=== PATIENT | male | born 1995 | race Caucasian/White ===

== ENCOUNTER → 2019-10-04 13:39 | Outpatient (CLI) | payer OTHER, SELFPAY ==
[2019-10-04 13:45] LABS: Basophils % 0.9 % (0.1-2.0); Eosinophils # 0.1 K/mm3 (0.0-0.4); Eosinophils % 2.6 % (0.1-12.0); Hematocrit 51.9 % (42.0-52.0); Hemoglobin 17.5 g/dL (14.1-18.0); Lymphocytes # 1.5 K/mm3 (0.7-4.5); Lymphocytes % 32.1 % (10-50); Mean Corpuscular HGB Conc 33.7 g/dL (31.8-35.4); Mean Corpuscular Hemoglobin 31.2 pg (27.0-31.2); Mean Corpuscular Volume 92.6 fl (80-94); Mean Platelet Volume 8.2 fl (7.4-10.4); Monocytes # 0.4 K/mm3 (0.1-1.0); Monocytes % 8.2 % (1.7-9.3); Neutrophils # 2.5 K/mm3 (1.8-7.8); Neutrophils % 56.1 % (37.0-80.0); Platelet Count 255 K/mm3 (142-424); Red Cell Distribution Width 13.3 % (11.5-17.5); White Blood Count 4.5 K/mm3 (4.8-10.8)
[2019-10-04 14:12] LABS: Alanine Aminotransferase 62 U/L (12-78); Albumin Level 3.9 gm/dL (3.4-5.0); Albumin/Globulin Ratio 1.2 (1.1-1.8); Alkaline Phosphatase 101 U/L (46-116); Anion Gap 13.6 mEq/L (5-15); Aspartate Amino Transferase 29 U/L (15-37); Bilirubin,Total 0.6 mg/dL (0.2-1.0); Blood Urea Nitrogen 6 mg/dL (7-18); Calcium 9.2 mg/dL (8.5-10.1); Carbon Dioxide 29 mmol/L (21.0-32.0); Chloride 105 mmol/L (98-107); Creatinine,Serum 0.81 mg/dL (0.70-1.30); Estimated Glomerular Filt Rate 116 ml/min (>60); Free T4 (Free Thyroxine) 0.92 ng/dl (0.76-1.46); GFR (African American) 140 ML/MIN (>60); Globulin 3.3 gm/dl (1.3-3.2); Potassium 4.6 mmoL/L (3.5-5.1); Sodium 143 mmol/L (136-145); Thyroid Stimulating Hormone 1.46 uIU/ml (0.358-3.740); Total Protein,Serum 7.2 gm/dL (6.4-8.2); Triglycerides 166 mg/dL (30-200); VLDL Cholesterol 33 mg/dL (0-40)
[2019-10-04 14:29] LABS: Chol/HDL Ratio 5.6 (1-3.5); Cholesterol 240 mg/dL (140-200); Glucose 97 mg/dL (74-106); HDL Cholesterol 43 mg/dL (27-67); LDL Cholesterol 164 mg/dL (0-130)
[2019-10-05 09:43] LABS: Hep A Ab, IgM Negative (Negative); Hep A Ab, Total Negative (Negative); Hep B Core Ab, Total Negative (Negative)
[2019-10-05 12:34] LABS: Hep B Surface Ab, Qual Non Reactive (.); Hepatitis B Surface Antigen Negative (Negative); Hepatitis C Antibody 0.1 s/co ratio (0.0-0.9)
== END ==
PROVIDERS: Visit Provider Emergency Medicine
DX: R07.89 Other chest pain (principal); R53.83 Other fatigue; R93.89 Abnormal findings on diagnostic imaging of other specified body structures
CPT/HCPCS: 80053; 80061; 84439; 84443; 85025; 86704; 86706; 86708; 87340; 87380

== ENCOUNTER → 2019-10-18 09:36 | Outpatient (CLI) | payer OTHER, SELFPAY ==
--- NOTE | 2019-10-18 09:41 | US_ITS ---
PROCEDURE: US EXTREMITY RT LIMITED CLINICAL INDICATION: right leg mass BB size nodule medial upper leg COMPARISON: No exams were available for comparison FINDINGS: There is a small subcutaneous area of increased echogenicity corresponding to the palpable abnormality in the medial aspect of the knee on the right measuring 1 cm. Centrally there is increased echogenicity with a small zone of decreased echogenicity. Around the periphery there is increased echogenicity. This forms a target sign. This could represent a lymph node, a sebaceous cyst, or an atypical lipoma. Please correlate with clinical findings. IMPRESSION: Complex hyperechoic nodule in the subcutaneous region corresponding to the palpable abnormality measuring approximately 1 cm and could be due to a complex lipoma sebaceous cyst or even a lymph node. Recommend follow-up to confirm stability. Dictated by: Guy Roger MD 10/18/2019 16:28 Electronically signed by Guy Roger MD in [place] 10/18/2019 16:28
--- NOTE | 2019-10-18 10:15 | XR_ITS ---
PROCEDURE: XR TIBIA FIBULA RT 2V CLINICAL INDICATION: leg mass COMPARISON: US EXTREMITY RT LIMITED from 10/18/2019 FINDINGS: No bony or joint abnormality. No soft tissue calcification or obvious mass. IMPRESSION: Negative right tib fib Dictated by: Guy Roger MD 10/18/2019 15:45 Electronically signed by Guy Roger MD in [place] 10/18/2019 15:45
== END ==
PROVIDERS: PCP Emergency Medicine; Visit Provider Emergency Medicine
DX: R22.41 Localized swelling, mass and lump, right lower limb (principal); M79.661 Pain in right lower leg
CPT/HCPCS: 73590; 76882

== ENCOUNTER → 2019-11-23 10:30 | Outpatient (CLI) | payer OTHER, SELFPAY | PROVIDERS: PCP Emergency Medicine; Visit Provider Emergency Medicine | DX: R07.89 Other chest pain (principal) | CPT/HCPCS: 93306 ==

== ENCOUNTER → 2020-05-08 19:11 | Outpatient (CLI) | payer OTHER, SELFPAY ==
[2020-05-08 20:02] LABS: Chol/HDL Ratio 4.8 (1-3.5); Cholesterol 261 mg/dl (140-200); HDL Cholesterol 54 mg/dl (40-60); Triglycerides 240 mg/dl (30-150); VLDL Cholesterol 48 mg/dL (0-40)
[2020-05-08 20:13] LABS: Direct LDL Cholesterol 157.85 mg/dL (100-129)
== END ==
PROVIDERS: Visit Provider Emergency Medicine
DX: E78.5 Hyperlipidemia, unspecified (principal)
CPT/HCPCS: 80061

== ENCOUNTER 2020-07-20 14:40 | Emergency (ER) | payer OTHER, SELFPAY ==
[2020-07-20 14:52] VITALS: BP 146/93; PULSE 79; RESP 17; TEMP 37; O2SAT 98; BMI 28.1
[2020-07-20 14:59] VITALS: BP 146/93; PULSE 79; RESP 17; TEMP 37; O2SAT 98
--- NOTE | 2020-07-20 14:59 | HMH.EDUTC ---
[facility] [place] Clinical Impression: Tinnitus, left ear Bilateral otitis media Qualifiers: Otitis media type: suppurative Chronicity: acute Recurrence: non-recurrent Spontaneous tympanic membrane rupture: without spontaneous rupture Qualified Code(s): H66.003 - Acute suppurative otitis media without spontaneous rupture of ear drum, bilateral Disposition: Home, Self-Care Condition on Discharge: Good Instructions: DI for Tinnitus Prescriptions: Amoxicillin [Amoxicillin 875MG Tab] 875 mg PO Q12H #20 tab Transmission Status: Pending to [id number] predniSONE [Prednisone 20mg Tab] 20 mg PO BID 5 Days #10 tab Transmission Status: Pending to [id number] Referrals: Tarah Kay PA [Primary Care Provider] - Time of Disposition: 15:05 Medical Decision Making - Edward Inquiry Pt receiving controlled substance: No Vital Signs: 07/20/20 14:52 Temperature 98.6 F Temperature Source Oral Pulse Rate [Left] 79 Respiratory Rate 17 Blood Pressure [Right Arm] 146/93 H Blood Pressure Mean [Right Arm] 110 Blood Pressure Source [Right Arm] Automatic Cuff Blood Pressure Position [Right Arm] Sitting 02 Sat by Pulse Oximetry 98 Oxygen Delivery Method Room Air [facility] [place] HPI - General Stated complaint: Ringing in left year Time Seen by Provider: 07/20/20 15:00 Mode of Arrival: Ambulatory Source of Information: Patient Limitations: No Limitations Description of Symptoms (Recalled from Triage Doc. by RN): Ringing in left ear since yesterday HEENT Symptoms (Recalled from RN notes): Yes (ringing in left ear) Resp Symptoms (Recalled from RN notes): No Skin Symptoms (Recalled from RN notes): No MS Symptoms (Recalled from RN notes): No Functional Status (Recalled from RN notes): stable - History of Present Illness Provider Complaint: Ringing in left ear X 1 day. No pain. No fever. No injury. No exposure to loud noises. Onset (ago): day(s) (1) Location: face Relieving factors: none Exacerbating factors: none Associated symptoms: denies other symptoms Treatments prior to arrival: none - Related Data Previous Rx's Medication Instructions Recorded atorvastatin 10 mg tablet 10 mg PO DAILY #90 tab 10/12/19 Amoxicillin [Amoxicillin 875MG 875 mg PO Q12H #20 tab 07/20/20 Tab] predniSONE [Prednisone 20mg 20 mg PO BID 5 Days #10 tab 07/20/20 Tab] Allergies Allergy/AdvReac Type Severity Reaction Status Date / Time No Known Allergies Allergy Verified 05/08/20 13:09 - Worker's Comp Is this a Worker's Comp case?: No Is this an [facility] Worker's Comp?: No Is this a [place] Worker's Comp?: No [facility] History - Hepatitis A Screen Drug use history?: No High risk sexual behaviors?: No History of sexually transmitted infection?: No Currently employed?: No Childcare worker?: No Do you have indoor plumbing?: No Do you have electricity?: Yes Attestation statement:: This patient has been screened for Hepatitis A risk factors. I have reviewed the patient's past medical history: Yes Medical History: Denies:: Asthma, Cancer, Chronic Obstructive Pulmonary Disease (COPD), Diabetes Mellitus Type 1, Diabetes Mellitus Type 2, Internal Pacemaker, MRSA Other Surgeries: Yes: Other. No: Pacemaker Amputation: No Fractures: No - Social History Smoking Status: Never smoker # Packs/Day (cigarettes): 1 Alcohol Intake: never Alcohol Intake Frequency:: a few times a week Substance Use Type: denies use Occupational Status: employed Housing: house Household Members: family Family Hx:: Diabetes, Heart Attack ROS Obtained: Yes All systems reviewed & no additional complaints - ENT Ears, Nose, Mouth, and Throat: Denies otalgia, Reports other (tinnitus) Physical Exam - General General appearance: alert, in no apparent distress - Head Head exam: atraumatic, normocephalic, normal inspection - Eye Eye exam: Present: normal appearance, PERRL, EOMI - ENT ENT exam: Present: normal
== END 2020-07-20 15:08 | disposition home or self-care (01) ==
PROVIDERS: Emergency Provider Physician Assistant; PCP Physician Assistant
DX: H66.003 Acute suppurative otitis media without spontaneous rupture of ear drum, bilateral (principal)
CPT/HCPCS: 99201

== ENCOUNTER → 2020-07-26 14:58 | Outpatient (CLI) | payer OTHER, SELFPAY | PROVIDERS: PCP Emergency Medicine; Visit Provider Emergency Medicine | DX: I49.9 Cardiac arrhythmia, unspecified (principal) | CPT/HCPCS: 93225; 93226 ==

== ENCOUNTER 2020-09-11 13:04 | Emergency (ER) | payer OTHER, SELFPAY ==
[2020-09-11 13:15] VITALS: BP 149/91; PULSE 85; RESP 19; TEMP 36.9; O2SAT 98; BMI 28.1
--- NOTE | 2020-09-11 13:35 | HMH.EDUTC ---
[facility] [place] Disposition Clinical Impression: Burning with urination Disposition: Home, Self-Care Condition on Discharge: Good Additional Instructions: Make sure that you are drinking plenty of fluids to help flush out kidneys *Over the counter Ibuprofen may help with pain Return if needed Follow up immediately if no improvement or any worsening of symptoms Referrals: Tarah Kay PA [Primary Care Provider] - As needed Forms: Work/School Release Time of Disposition: 13:37 Medical Decision Making - Edward Inquiry Pt receiving controlled substance: No Edward was queried for this patient: No Vital Signs: 09/11/20 13:15 Temperature 98.4 F Temperature Source Oral Pulse Rate [Right Brachial] 85 Respiratory Rate 19 Blood Pressure [Right Arm] 149/91 H Blood Pressure Mean [Right Arm] 110 Blood Pressure Source [Right Arm] Automatic Cuff Blood Pressure Position [Right Arm] Sitting 02 Sat by Pulse Oximetry 98 Oxygen Delivery Method Room Air - Lab Data Lab results reviewed: Yes: I reviewed the patient's lab results. Medical Decision Narrative: Spoke with patient and discussed transfer to the ED for further work up and evaluation and he declined transfer Recommended make sure that he was drinking plenty of fluids and follow up with his PCP or straight to the ER if no improvement or any worsening of symptoms patient reports not having any pain or discomfort at this time and will follow up if pain returns [facility] [place] HPI - General Stated complaint: stomach pain Time Seen by Provider: 09/11/20 13:35 Mode of Arrival: Ambulatory Source of Information: Patient Limitations: No Limitations Description of Symptoms (Recalled from Triage Doc. by RN): PATIENT C/O PRESSURE IN RLQ AND BURING WITH URINATION X 2 DAYS HEENT Symptoms (Recalled from RN notes): No Resp Symptoms (Recalled from RN notes): No Skin Symptoms (Recalled from RN notes): No MS Symptoms (Recalled from RN notes): No Functional Status (Recalled from RN notes): WNL - History of Present Illness Provider Complaint: Patient state that he feels like he has been urinating more frequently than normal and having pressure like feeling in his lower quad and burning with urination at times States that he has had UTI in the past and felt like it did when he had one and wanted to get checked - Related Data Allergies Allergy/AdvReac Type Severity Reaction Status Date / Time No Known Allergies Allergy Verified 05/08/20 13:09 - Worker's Comp Is this a Worker's Comp case?: No [facility] History - Hepatitis A Screen Drug use history?: No High risk sexual behaviors?: No History of sexually transmitted infection?: No Currently employed?: No Childcare worker?: No Do you have indoor plumbing?: Yes Do you have electricity?: Yes Attestation statement:: This patient has been screened for Hepatitis A risk factors. I have reviewed the patient's past medical history: Yes Medical History: Denies:: Asthma, Cancer, Chronic Obstructive Pulmonary Disease (COPD), Diabetes Mellitus Type 1, Diabetes Mellitus Type 2, Internal Pacemaker, MRSA Other Surgeries: Yes: Other. No: Pacemaker Amputation: No Fractures: No - Social History Smoking Status: Never smoker # Packs/Day (cigarettes): 1 Alcohol Intake: never Alcohol Intake Frequency:: a few times a week Substance Use Type: denies use Occupational Status: other Housing: house Household Members: family Family Hx:: Diabetes, Heart Attack ROS Obtained: Yes All systems reviewed & no additional complaints, Yes Systems reviewed as appropriate & no additional complaints - Constitutional Constitutional: Reports system reviewed and no additional complaints, except as docu, Denies body ache, Denies chills, Denies fever(s) - Gastrointestinal Gastrointestingal: Reports: system reviewed and no additional complaints, except as docu. Denies: abdominal pain, cramping, diarrhea, nausea, vomiting - Genitourinary Male Genitourinary: Reports ur
[2020-09-11 13:44] VITALS: BP 149/91; PULSE 85; RESP 19; TEMP 36.9; O2SAT 98
[2020-09-11 14:29] LABS: Apearance,Urine Clear (Clear); Bilirubin,Urine 1+ (Negative); Blood, Urine Negative (Negative); Color,Urine Yellow (Yellow); Glucose,Urine (UA) Negative (Negative); Ketones,Urine 15 (Negative); PH,Urine 5.5 (5.0-8.5); Protein,Urine Trace (Negative)
[2020-09-11 14:30] LABS: UTC Leukocyte Esterase,Urine Negative (Negative); UTC Nitrate,Urine Negative (Negative); Urobilinogen,Urine 0.2 EU/dl (0.2)
== END 2020-09-11 13:45 | disposition home or self-care (01) ==
PROVIDERS: Emergency Provider Nurse Practitioner; PCP Physician Assistant
DX: R30.0 Dysuria (principal); F17.210 Nicotine dependence, cigarettes, uncomplicated
CPT/HCPCS: 81003; 99201

== ENCOUNTER 2021-08-06 17:20 | Emergency (ER) | payer OTHER, SELFPAY ==
[2021-08-06 18:03] VITALS: BP 151/94; PULSE 93; RESP 14; TEMP 36.9; O2SAT 99; BMI 28.1
--- NOTE | 2021-08-06 18:32 | HMH.EDUTC ---
[facility] [place] Disposition Clinical Impression: Right ear injury Qualifiers: Encounter type: initial encounter Qualified Code(s): S09.91XA - Unspecified injury of ear, initial encounter Disposition: Home, Self-Care Condition on Discharge: Good Instructions: DI for Ear Pain-Adult Additional Instructions: Follow up with your primary care physician. Follow up if you have any additional ear issues. Take tylenol for pain or fever. GO TO THE ER FOR ANY LIFE THREATENING OR WORSENING CONCERNS OR SYMPTOMS. Referrals: Tarah Kay PA [Primary Care Provider] - Time of Disposition: 18:39 Medical Decision Making - Medical Records Medical records reviewed: No: I reviewed the patient's medical records. - Edward Inquiry Pt receiving controlled substance: No Vital Signs: 08/06/21 18:03 Temperature 98.4 F Temperature Source Oral Pulse Rate [Left] 93 H Respiratory Rate 14 Blood Pressure [Right Arm] 151/94 H Blood Pressure Mean [Right Arm] 113 02 Sat by Pulse Oximetry 99 Medical Decision Narrative: His right ear tm and ear canal were perfectly normal. No perforation, no wounds at all. [facility] [place] HPI - General Stated complaint: poked in R ear with toy sword Time Seen by Provider: 08/06/21 18:32 Mode of Arrival: Ambulatory Source of Information: Patient Limitations: No Limitations Description of Symptoms (Recalled from Triage Doc. by RN): pt c/o discomfort in his R ear. pt states last night he was sleeping and his son stuck a lego sword in his ear and the pt swatted it away. pt wants to make sure it didn't damage his ear drum. HEENT Symptoms (Recalled from RN notes): Yes (R ear pain) Resp Symptoms (Recalled from RN notes): No Skin Symptoms (Recalled from RN notes): No MS Symptoms (Recalled from RN notes): No Functional Status (Recalled from RN notes): na - History of Present Illness Provider Complaint: He states that last night while he was sleeping his 5 year old son put a small lego sword back in his right ear. When he woke up he brushed his ear with his hand and this caused the sword to poke further back in his ear. This resulted in him having ear pain. His ear is still sore this afternoon. He denies any change in his hearing. He denies any bleeding or discharge from his ear. He denies any other complaints. - Related Data Allergies Allergy/AdvReac Type Severity Reaction Status Date / Time No Known Allergies Allergy Verified 05/08/20 13:09 - Worker's Comp Is this a Worker's Comp case?: No [facility] History - Hepatitis A Screen Drug use history?: No High risk sexual behaviors?: No History of sexually transmitted infection?: No Currently employed?: No Childcare worker?: No Do you have indoor plumbing?: Yes Do you have electricity?: Yes Attestation statement:: This patient has been screened for Hepatitis A risk factors. I have reviewed the patient's past medical history: Yes Medical History: Denies:: Asthma, Cancer, Chronic Obstructive Pulmonary Disease (COPD), Diabetes Mellitus Type 1, Diabetes Mellitus Type 2, Internal Pacemaker, MRSA Other Surgeries: Yes: Other. No: Pacemaker Amputation: No Fractures: No - Social History Smoking Status: Never smoker # Packs/Day (cigarettes): 1 Alcohol Intake: never Alcohol Intake Frequency:: a few times a week Substance Use Type: denies use Occupational Status: other Housing: house Household Members: family Family Hx:: Diabetes, Heart Attack ROS Obtained: Yes All systems reviewed & no additional complaints - Constitutional Constitutional: Denies chills, Denies fever(s) - Eyes Eyes: Denies eye discharge - ENT Ears, Nose, Mouth, and Throat: Reports as per HPI - Cardiovascular Cardiovascular: Denies chest pain - Respiratory Respiratory: Denies chest congestion, Denies cough - Integumentary/Breasts Skin/Breast: Denies redness, Denies rash, Denies wounds - Neurologic Neurologic: Denies dizziness, Denies headache(s) Physical Exam
[2021-08-06 18:40] VITALS: BP 151/94; PULSE 93; RESP 14; TEMP 36.9
== END 2021-08-06 18:51 | disposition home or self-care (01) ==
PROVIDERS: Emergency Provider Nurse Practitioner Family; PCP Physician Assistant
DX: S09.91XA Unspecified injury of ear, initial encounter (principal); W22.8XXA Striking against or struck by other objects, initial encounter; Y92.019 Unspecified place in single-family (private) house as the place of occurrence of the external cause
CPT/HCPCS: 99202; G0463

== ENCOUNTER 2022-05-15 14:24 | Emergency (ER) | payer OTHER, SELFPAY ==
[2022-05-15 15:39] VITALS: BP 0/0; PULSE 0; RESP 0; TEMP -17.7; TEMP 0
== END 2022-05-15 15:43 | disposition left against medical advice (07) ==
LOC: UTC 14:28
PROVIDERS: Emergency Provider Nurse Practitioner; PCP Emergency Medicine
DX: Z53.21 Procedure and treatment not carried out due to patient leaving prior to being seen by health care provider (principal)

== ENCOUNTER 2022-05-17 12:19 | Emergency (ER) | payer OTHER, SELFPAY ==
[2022-05-17 12:30] VITALS: BP 176/100; PULSE 103; RESP 21; TEMP 36.5; O2SAT 100; BMI 28.8
--- NOTE | 2022-05-17 12:49 | EXP.UTC ---
Discharge Plan Disposition Patient Disposition: Home, Self-Care Condition: Good Prescriptions Prescriptions: New fluticasone propionate [Flonase Allergy Relief] 50 mcg/actuation spray,suspension 1 spray intranasal DAILY PRN (Reason: allergy symptoms) Qty: 16 0RF Rx Instructions: administer into each nostril cetirizine 10 mg tablet 10 mg PO DAILY Qty: 30 0RF No Action amoxicillin 500 mg capsule 500 mg PO TID Label Comments: TAKE 1 CAPSULE BY MOUTH THREE TIMES DAILY Referrals Follow up/Referrals: Bimal Bertrand MD [Primary Care Provider] - See instructions Clinical Impressions Clinical Impression: Eustachian tube dysfunction Instructions Patient Instructions: Eustachian Tube Dysfunction, DI for Eustachian Tube Dysfunction-Adult Discharge ED Provider: Elsie Wolf [facility] [place] HPI General Stated complaint: pressure in ears, congestion Mode of Arrival: Ambulatory Source of Information: Patient Limitations: No Limitations Time Seen by Provider: 05/17/22 12:50 Description of Symptoms (Recalled from Triage Doc. by RN): PATIENT C/O PRESSURE IN BILATERAL EARS X 4 DAYS HEENT Symptoms (Recalled from RN notes): Yes Resp Symptoms (Recalled from RN notes): No Skin Symptoms (Recalled from RN notes): No MS Symptoms (Recalled from RN notes): No Functional Status (Recalled from RN notes): WNL History of Present Illness Provider Complaint: Patient states that he has been having pressure like feeling in both ears for about 4 days that has not improved states that he got some over the counter ear drops but they havent helped much States that today he was still having pressure so he came in to get them checked Related Data Home Medications Medication Instructions Recorded Confirmed amoxicillin 500 mg capsule 500 mg PO TID TOOTH EXTRACTION 05/17/22 05/17/22 Previous Rx's Medication Instructions Recorded cetirizine 10 mg tablet 10 mg PO DAILY #30 tabs 05/17/22 fluticasone propionate 50 1 spray intranasal DAILY PRN 05/17/22 mcg/actuation nasal allergy symptoms #16 grams spray,suspension (Flonase Allergy Relief) Allergies Allergy/AdvReac Type Severity Reaction Status Date / Time No Known Allergies Allergy Verified 05/08/20 13:09 Worker's Comp Is this a Worker's Comp case?: No [facility] Medical History (Updated 05/17/22 @ 13:12 by Elsie Wolf APRN) No significant past medical history Social History (Updated 05/17/22 @ 12:41 by Lauren Shields RN) Smoking Status: Never smoker second hand exposure: No alcohol intake: never substance use type: denies use current occupational status: other Travel in the last 8 weeks: None household members: family housing: house current occupational exposures/hazards: No caffeine: Yes ROS Obtained: Yes All systems reviewed & no additional complaints except as documented and Yes Systems reviewed as appropriate & no additional complaints except as documented Eyes Eyes: Reports system reviewed and no additional complaints, except as documented and Reports as per HPI ENT Ears, Nose, Mouth, and Throat: Reports system reviewed and no additional complaints, except as documented, Reports as per HPI and Reports otalgia (ear pain/pressure) Physical Exam General General appearance: alert and in no apparent distress Expanded ENT Exam TM/Canal exam: Bilateral TM: bulging (clear fluid noted) Respiratory Respiratory exam: Present normal lung sounds bilaterally and respiratory distress Cardiovascular Cardiovascular exam: Present regular rate and normal rhythm Neurological Exam Neurological exam: Present alert and oriented X3 Medical Decision Making Edward Inquiry Pt receiving controlled substance: No Edward was queried for this patient: No Vital Signs: 05/17/22 12:30 Temperature 97.7 F Temperature Source Oral Pulse Rate [Left Brachial] 103 H Respiratory Rate 21 Blood Pressure [Left Arm] 176/100 H Blood Pres
[2022-05-17 13:10] VITALS: BP 176/100; PULSE 103; RESP 21; TEMP 36.5; O2SAT 100
== END 2022-05-17 13:15 | disposition home or self-care (01) ==
PROVIDERS: Emergency Provider Nurse Practitioner; PCP Emergency Medicine
DX: H69.83 Other specified disorders of Eustachian tube, bilateral (principal)
CPT/HCPCS: 99212; G0463

== ENCOUNTER → 2023-06-03 23:11 | Outpatient (CLI) | payer SELFPAY ==
[2023-06-03 20:03] LABS: Basophils % 0.4 % (0.1-2.0); Eosinophils % 0.3 % (0.1-12.0); Hematocrit 50.6 % (42.0-52.0); Hemoglobin 16.6 g/dL (14.1-18.0); Lymphocytes # 1.6 K/mm3 (0.7-4.5); Lymphocytes % 31.9 % (10-50); Mean Corpuscular HGB Conc 32.8 g/dL (31.8-35.4); Mean Corpuscular Hemoglobin 30.9 pg (27.0-31.2); Mean Corpuscular Volume 94.4 fl (80-94); Mean Platelet Volume 8.3 fl (7.4-10.4); Monocytes # 0.3 K/mm3 (0.1-1.0); Monocytes % 6.5 % (1.7-9.3); Neutrophils % 60.9 % (37.0-80.0); Platelet Count 213 K/mm3 (142-424); Red Blood Count 5.36 M/mm3 (4.60-6.20); Red Cell Distribution Width 12.6 % (11.5-17.5); White Blood Count 4.9 K/mm3 (4.8-10.8)
[2023-06-03 20:08] LABS: Alanine Aminotransferase 23 U/L (12-78); Albumin Level 5.3 g/dl (3.5-5.0); Albumin/Globulin Ratio 1.8 (1.1-1.8); Alkaline Phosphatase 62 U/L (38-126); Anion Gap 17.9 mEq/L (5-15); Aspartate Amino Transferase 27 U/L (17-59); Bilirubin,Total 1.4 mg/dl (0.2-1.3); Blood Urea Nitrogen 8 mg/dl (9-20); Calcium 9.8 mg/dl (8.4-10.2); Carbon Dioxide 24 mmol/L (22.0-30.0); Chloride 99 mmol/L (98-107); Chol/HDL Ratio 4.1 (1-3.5); Cholesterol 257 mg/dl (140-200); Estimated Glomerular Filt Rate 114 ml/min (>60); GFR (African American) 138 ML/MIN (>60); Glucose 89 mg/dl (74-100); HDL Cholesterol 62 mg/dl (40-60); Potassium 3.9 mmoL/L (3.5-5.1); Sodium 137 mmol/L (136-145); Total Protein,Serum 8.3 g/dl (6.3-8.2); Triglycerides 93 mg/dl (30-150); VLDL Cholesterol 19 mg/dL (0-40)
[2023-06-03 20:18] LABS: Direct LDL Cholesterol 137.13 mg/dL (100-129)
[2023-06-03 20:25] LABS: 25-OH Vitamin D, Total 37.1 ng/mL (30-100)
[2023-06-03 20:58] LABS: Vitamin B12 244 pg/mL (239-931)
== END ==
LOC: LAB.DROPOF 23:11
PROVIDERS: PCP Physician Assistant; Visit Provider Physician Assistant
DX: I10 Essential (primary) hypertension (principal)
CPT/HCPCS: 80053; 80061; 82306; 82607; 84443; 85025